=== PATIENT | male | born 1965 ===

== ENCOUNTER → 2023-09-05 10:53 | Outpatient (REF) | payer OTHER, SELFPAY ==
--- NOTE | 2023-09-05 12:54 | EEG.RPT ---
Electroencephalogram Report
Recording
Date of EE09/05/23
Length of EEG recordin minutes
Done with Video Recording: Yes
Patient Status: Inpatient
Recording Conditions: Awake and Drowsy
Hyperventilation Performed: No
Photic Stimulation Performed: Yes
Report
LESS THAN 1 HOUR EEG REPORT
LESS THAN 1 HOUR EEG INTERPRETATION:
Unremarkable EEG for age
CLINICAL CORRELATION:
A normal EEG does not rule out a diagnosis of epilepsy.� If clinical suspicion for seizure persists, a prolonged recording may be warranted.
Clinical correlation is advised.
METHODS:
A 21 channel digitized electroencephalogram (EEG) was performed in the [facility]. The 10/20 international system of electrode placement was used with ECG and lateral/vertical eye movements recorded. Study lasted 32 minutes.
ELECTROENCEPHALOGRAPHER IMPRESSION(S):
Quality of study
Good
Background
Unremarkable, well maintained, medium amplitude alpha-frequency
Normal posterior dominant rhythm of 10-11 hz which attenuates with eye opening
No asymmetry of background
Sleep
Drowsiness present
Photic Stimulation
Failed to activate the record
ECG
Normal sinus rhythm
== END ==
LOC: EEG 10:53
PROVIDERS: ATTENDING PHYSICIAN Specialist; FAMILY PHYSICIAN Family Medicine
DX: I62.03 Nontraumatic chronic subdural hemorrhage (principal)
CPT/HCPCS: 95816